=== PATIENT | female | born 1945 | race Asian ===

== ENCOUNTER 2017-08-17 05:55 | Day surgery (SDC) | payer OTHER ==
--- NOTE | 2017-08-16 13:09 | PREOPHP ---
DATE OF ADMISSION: 08/17/2017 HISTORY OF PRESENT ILLNESS: This 71-year-old patient is admitted for elective cataract surgery of the right eye. The patient has had progressive deterioration of vision in both eyes and 2 years ago underwent cataract surgery of the right eye with good visual result. No other prior history of eye disease or injury. PAST MEDICAL HISTORY: The patient does have a history of systemic hypertension, hypercholesteremia, and heart disease. CURRENT MEDICATION: Warfarin (discontinued 1 week prior to surgery) carvedilol, felodipine, hydrochlorothiazide, iron sulfate, isosorbide, and alendronate. ALLERGIES: THERE ARE NO KNOWN ALLERGIES. PHYSICAL EXAMINATION: HEENT: Visual acuity with best correction is 20/30 in the right eye and 20/70 in the left eye. Slit lamp examination reveals a posterior chamber intraocular lens in the right eye and a nucleus sclerotic cataract with vacuolar changes in the left eye. Applanation tonometry is 16 mmHg in both eyes. Examination of the retina appears within normal limits. DIAGNOSIS: Cataract left eye. PLAN: Cataract extraction with lens implant left eye. The risks and alternatives to surgery have been discussed with the patient and the patient has opted to proceed with surgery in hopes of improving visual acuity leading to greater ability to perform activities of daily living. Dictated By: Stoney Lees MD /[email or web address]/guille /Document#: [id number]
[~2017-08-17] VITALS: Ht 144.8 cm; Wt 60.0 kg
[2017-08-17] VITALS (9 sets, daily range): BP systolic 105–169; BP diastolic 54–70; PULSE 64–79; RESP 11–18; Ht 144.8 cm; Wt 60.0 kg
[~2017-08-17 05:55] MED LIST: AMLO2.5T78 PO; CARV25TA79 PO; FAMO-95 PO; FERROUS GL325 ( 36 ) PO; HYDR12.53 PO; ISOS20TA3 PO; LOSA1TAB19 PO; SIMV20TA2 PO; WARF4TAB52 PO
[2017-08-17] MEDS ORDERED: EPINEPHrine 0.1 MG/ML SYG ONE (06:25)
[2017-08-17] MEDS ORDERED: GENTAMICIN 80 MG INJ ONE (06:25)
[2017-08-17] MEDS ORDERED: CARBACHOL 0.01% 1.5 ML OPH INJ ONE (06:25)
[2017-08-17] MEDS ORDERED: CEFAZOLIN 1 GM INJ ONE (06:25)
[2017-08-17] MEDS ORDERED: LIDOCAINE 4% (MPF) 5 ML INJ ONE (06:25)
[2017-08-17] MEDS ORDERED: DEXAMETHASONE 4 MG/ML 1 ML INJ ONE (06:26)
[2017-08-17] MEDS ORDERED: EPINEPHrine 1 MG INJ ONE (06:26)
[2017-08-17] MEDS ORDERED: TROPICAMIDE 1% 3ML OPH OPER SCH (07:00)
[2017-08-17] MEDS ORDERED: DICLOFENAC 0.1% 2.5 ML OPH OPER SCH (07:00)
[2017-08-17] MEDS ORDERED: CYCLOPENTOLATE/PHENYLEPH 2 ML OPH OPER SCH (07:00)
[2017-08-17] MEDS ORDERED: CIPROFLOXACIN 0.3% 2.5 ML OPH OPER SCH (07:00)
[2017-08-17] MEDS ORDERED: NITR-58 PO (07:32)
[2017-08-17] MEDS ORDERED: LOSA1TAB21 PO (07:32)
[2017-08-17] MEDS ORDERED: ALEN10TA18 PO (07:32)
[2017-08-17] MEDS ORDERED: SIMV40TA2 PO (07:33)
[2017-08-17] MEDS ORDERED: CARBACHOL 0.01% 1.5 ML OPH INJ IO ONE (08:24)
[2017-08-17] MEDS ORDERED: NA HYALURONATE/CHONDROITIN 0.5 ML SYG RIGHT EYE ONE (08:24)
[2017-08-17] MEDS ORDERED: DEXAMETHASONE 4 MG/ML 1 ML INJ INJ ONE (08:24)
[2017-08-17] MEDS ORDERED: CEFAZOLIN 1 GM INJ INJ ONE (08:24)
[2017-08-17] MEDS ORDERED: FENTAnyl 50 MCG/ML VIAL ONE (08:32)
[2017-08-17] MEDS ORDERED: MIDAZOLAM 1 MG/ML 2 ML INJ ONE (08:32)
[2017-08-17] MEDS ORDERED: ETOMIDATE 20 MG INJ ONE (08:33)
[2017-08-17] MEDS ORDERED: TETRACAINE 0.5% 4 ML OPH ONE (08:41)
[2017-08-17] MEDS ORDERED: HYDROmorphONE (0.2 MG/ML) 10ML SYG IV PRN ×3 (09:00)
[2017-08-17] MEDS ORDERED: OXYCODONE/ACETAMINOPHEN (5/325) TAB PO PRN ×2 (09:00)
[2017-08-17] MEDS ORDERED: MEPERIDINE 25 MG INJ IV PRN (09:00)
[2017-08-17] MEDS ORDERED: DIPHENHYDRAMINE 50 MG INJ IV PRN (09:00)
[2017-08-17] MEDS ORDERED: hydrALAzine 20 MG INJ IV PRN (09:00)
[2017-08-17] MEDS ORDERED: LABETALOL HCL 20MG INJ IV PRN (09:00)
[2017-08-17] MEDS ORDERED: ONDANSETRON 4 MG INJ IV PRN (09:00)
--- NOTE | 2017-08-17 09:09 | SIPON ---
Date/Time of Note Date/Time of Note DATE: 08/17/17 TIME: 09:08 Operative Report Preoperative Diagnosis cataract os Postoperative Diagnosis same Operation/Procedure Performed cataract extraction os Surgeon Valente Duran MD Anesthesia Type: MAC Estimated Blood Loss: none Transfusion Required: no Specimen: none Grafts/Implants posterior chamber lens implant Complications: no VALENTE DURAN MD Aug 17, 2017 09:09
--- NOTE | 2017-08-17 10:08 | OPR ---
DATE OF OPERATION: 08/17/2017 PREOPERATIVE DIAGNOSIS: Cataract, left eye. POSTOPERATIVE DIAGNOSIS: Cataract, left eye. OPERATION PERFORMED: Cataract extraction with lens implant, left eye. SURGEON: Stoney Lees MD ANESTHESIOLOGIST: Edelmira Pal MD ANESTHESIA: Local standby. OPERATION PERFORMED: Phacoemulsification with posterior chamber intraocular lens implant, left eye. OPERATIVE PROCEDURE: The patient was brought to the operating room and placed on the table with an IV in place and the patient attached to an patient care director. Oxygen was given via face mask. After some intravenous sedation was administered, local anesthesia was given using Xylocaine 2% with epinephrine, mixed with Marcaine 0.5 percent. This was given in a lid block and retrobulbar injection. The patient was then prepped and draped in the usual sterile manner. A wire lid speculum was inserted between the lids of the left eye. A Superblade was used to enter the anterior chamber at the corneoscleral limbus at the 10:30 o'clock position. A separate incision was made using a 3.0-mm keratome which entered the corneoscleral junction at the 12 o'clock position. Through this 3-mm opening, an irrigating cystotome was introduced into the anterior chamber. The chamber was filled with Viscoat and an anterior capsulotomy was performed. Balanced salt solution was then used for hydrodissection of the lens. A phacoemulsification handpiece was then brought into the field and introduced into the anterior chamber. The lens nucleus was emulsified using a deep groove and cracking the nucleus into quadrants. Following this, each quadrant was aspirated and emulsified at the pupillary margin. After this was completed, the irrigation/aspiration handpiece was brought to the field, introduced into the posterior chamber, and the lens cortical material was removed. When this was completed, additional Viscoat was injected into the anterior and posterior chambers. The 3-mm opening had its internal lips enlarged, and then the posterior chamber intraocular lens measuring 26.5 diopters ([id number]) was then injected into the posterior chamber using the lens injector system. After the leading haptic was introduced into the capsular bag and the lens optic was present in the center of the eye, the injector was removed and the trailing haptic was grasped with non-toothed forceps and introduced into the capsular fold superiorly. A Sinskey hook was then used to rotate the intraocular lens so that the lips were oriented in the horizontal meridian. One 10-0 nylon suture was placed across the wound. Prior to tying, the irrigation/aspiration handpiece was reintroduced into the anterior chamber to remove the Viscoat. Miochol was instilled to constrict the pupil, and then the 10-0 nylon suture was tied. The ends were cut short and then the knot was buried. Then, 0.5 mL of dexamethasone and 0.5 mL of Ancef were injected into the sub-Tenon space in the inferior fornix. Ciloxan drops were then placed on the surface of the eye. The speculum was removed and a patch was applied. The patient then left the operating room in satisfactory condition. Dictated By: Stoney Lees MD /[email or web address] /Document#: [id number]
[2017-08-17] MEDS ORDERED: NA HYALURONATE/CHONDROITIN 0.5 ML SYG ONE (11:06)
== END 2017-08-17 10:55 | disposition home or self-care (01) ==
LOC: SDS 05:55
PROVIDERS: ATTEND Ophthalmology
DX: H25.12 Age-related nuclear cataract, left eye (principal); I10 Essential (primary) hypertension; E78.00 Pure hypercholesterolemia, unspecified; Z86.73 Personal history of transient ischemic attack (TIA), and cerebral infarction without residual deficits; I48.91 Unspecified atrial fibrillation
CPT/HCPCS: 66984; J0171; J0690; J1100; J1580; J2250; J3010; V2632; Z7512; Z7610